=== PATIENT | male | born 1985 | race Caucasian/White ===

== ENCOUNTER 2016-12-25 21:12 | Emergency (ER) | payer MEDICAID, OTHER ==
[2016-12-25] MEDS ORDERED: Sodium Chloride 0.9% 1,000 ML IV ONE ×2 (21:52→22:47)
[2016-12-25 21:53] LABS: BASO # 0.1 K/uL (0.0-0.2); BASO % 0.6 % (0.0-2.0); EOS # 0.2 K/uL (0.0-0.7); EOS % 1.6 % (0.0-4.0); HEMOGLOBIN 14.5 g/dL (12.0-18.0); LYMPH # 3.6 K/uL (1.0-4.3); LYMPH % 37.7 % (20.0-40.0); MEAN CELL VOLUME 90.2 fL (80.0-94.0); MEAN CORPUSCULAR HEMOGLOBIN 30.6 pg (27.0-31.0); MEAN CORPUSCULAR HGB CONC 33.9 g/dL (33.0-37.0); MEAN PLATELET VOLUME 9.4 fL (7.2-11.7); MONO # 0.7 K/uL (0.0-0.8); MONO % 7.3 % (0.0-10.0); NEUT % 52.8 % (50.0-75.0); RBC 4.75 Mil/uL (4.40-5.90); RED CELL DISTRIBUTION WIDTH 13.8 % (11.5-14.5); WHITE BLOOD COUNT 9.5 K/uL (4.8-10.8)
[2016-12-25 22:02] LABS: ALBUMIN 4.2 g/dL (3.5-5.0)
[2016-12-25] MEDS ORDERED: Sodium Chloride 0.9% 1,000 ML ONE (22:02)
[2016-12-25 22:05] LABS: ALB/GLOB RATIO 1.2 (1.0-2.1); AST/SGOT 27 U/L (17-59); BLOOD UREA NITROGEN 10 mg/dL (9-20); GFR AFRICAN-AMERICAN > 60; GFR NON-AFRICAN AMERICAN > 60
[2016-12-25 22:06] LABS: ALT/SGPT 30 U/L (21-72); CALCIUM 8.8 mg/dl (8.6-10.4)
[2016-12-25 23:22] LABS: URINE BACTERIA RARE (<OCC); URINE BILIRUBIN NEGATIVE (NEGATIVE); URINE BLOOD NEGATIVE (NEGATIVE); URINE CLARITY Clear (Clear); URINE COLOR Yellow (YELLOW); URINE GLUCOSE (UA) NORMAL (Normal); URINE LEUKOCYTE ESTERASE NEG Leu/uL (Negative); URINE NITRATE NEGATIVE (NEGATIVE); URINE PROTEIN NEGATIVE (NEGATIVE); URINE UROBILINOGEN NORMAL mg/dL (0.2-1.0)
--- NOTE | 2016-12-26 00:16 | C.PDOC ---
History Of Present Illness 31 year old male presents to the ED with complaints of abdominal pain and intermittent diarrhea for three days. Patient denies fever, nausea, vomiting, dysuria/hematuria, chest pain, SOB. Time Seen by Provider: 12/25/16 21:51 Chief Complaint (Nursing): Abdominal Pain History Per: Patient History/Exam Limitations: no limitations Onset/Duration Of Symptoms: Days (3), Intermittent Episodes (diarrhea ) Current Symptoms Are (Timing): Still Present Radiation Of Pain To:: None Quality Of Discomfort: "Pain" Associated Symptoms: Diarrhea. denies: Fever, Chills, Nausea, Vomiting, Urinary Symptoms Recent travel outside of the [place]: No Past Medical History Reviewed: Historical Data, Nursing Documentation, Vital Signs Vital Signs: Last Vital Signs Temp 97.6 F 12/26/16 00:40 Pulse 87 12/26/16 00:40 Resp 16 12/26/16 00:40 BP 112/84 12/26/16 00:40 Pulse Ox 99 12/26/16 06:44 - Medical History PMH: No Chronic Diseases - [facility] Procedures APPLICATION OF SPLINT (03/24/15) Family History: States: No Known Family Hx - Social History Hx Alcohol Use: No Hx Substance Use: No - Immunization History Hx Tetanus Toxoid Vaccination: No Hx Influenza Vaccination: No Hx Pneumococcal Vaccination: No Review Of Systems Except As Marked, All Systems Reviewed And Found Negative. Constitutional: Negative for: Fever, Chills Cardiovascular: Negative for: Chest Pain, Palpitations Respiratory: Negative for: Cough, Shortness of Breath Gastrointestinal: Positive for: Abdominal Pain, Diarrhea. Negative for: Nausea , Vomiting Genitourinary: Negative for: Dysuria, Hematuria Skin: Negative for: Rash Physical Exam - Physical Exam Appears: Well, Non-toxic, No Acute Distress Skin: Warm, Dry Head: Normacephalic Eye(s): bilateral: Normal Inspection Oral Mucosa: Moist Neck: Supple Cardiovascular: Rhythm Regular Respiratory: Normal Breath Sounds, No Rales, No Rhonchi, No Wheezing Gastrointestinal/Abdominal: Bowel Sounds, Soft, Tenderness (mild diffuse tenderness to palpation), No Distention, No Guarding, No Rebound, Other ((-) McBurney's, (-) Kirby's ) Back: Normal Inspection, No CVA Tenderness Neurological/Psych: Oriented x3 ED Course And Treatment - Laboratory Results Result Diagrams: 12/25/16 21:50 12/25/16 21:50 O2 Sat by Pulse Oximetry: 99 (room air ) Pulse Ox Interpretation: Normal Progress Note: Blood work, UA ordered and reviewed. Patient given IV NS bolus x 2. Reevaluation Time: 00:20 Reassessment Condition: Improved (Patient reassessed, is resting comfortably, in no pain/distres. On exam, abdomen is soft and nontender. Blood work and UA unremarkable. Patient is well appearing, with normal vitals. Rx given for Bentyl, and patient instructed to drink plenty of fluids and follow up with PMD/ clinic in 1-2 days. He understands he should return to ED if symptoms worsen.) Disposition Counseled Patient/Family Regarding: Studies Performed, Diagnosis, Need For Followup, Rx Given - Disposition Referrals: [facility] [Outside] Disposition: HOME/ ROUTINE Disposition Time: 00:20 Condition: STABLE Additional Instructions: FOLLOW UP WITH YOUR DOCTOR/CLINIC IN 1-2 DAYS DRINK PLENTY OF CLEAR FLUIDS RETURN TO ER IF SYMPTOMS WORSEN Prescriptions: Dicyclomine [Bentyl] 20 mg PO Q6 PRN #12 tab PRN Reason: ABDOMINAL CRAMPING Instructions: Acute Diarrhea (ED) Print Language: ANGUILLAN - POA Present On Arrival: None - Clinical Impression Clinical Impression: Abdominal pain, Diarrhea - Scribe Statement The provider has reviewed the documentation as recorded by the Scribblessing Tompkins All medical record entries made by the Mistyibblessing were at my direction and personally dictated by me. I have reviewed the chart and agree that the record accurately reflects my personal performance of the history, physical exam, medical decision making, and the department course for this patient. I have also personally directed, reviewed, and agree with the discharge instructions and disposition.
[2016-12-26 00:42] VITALS: BP 112/84; PULSE 87; RESP 16; TEMP 97.6
[2016-12-26 06:43] VITALS: O2SAT 99
== END 2016-12-26 00:40 | disposition home or self-care (01) ==
LOC: C.ER 21:12
DX: R10.9 Unspecified abdominal pain (principal); R19.7 Diarrhea, unspecified
CPT/HCPCS: 80053; 81001; 83690; 85025; 96360; 99285; J7040

== ENCOUNTER 2017-10-13 20:58 | Emergency (ER) | payer OTHER ==
[2017-10-13 21:15] VITALS: BP 151/84; PULSE 89; RESP 16; TEMP 98.3; O2SAT 98
--- NOTE | 2017-10-13 22:17 | C.PDOC ---
History Of Present Illness Patient is a 32 y/o male who presents to the ED with a complaint of right middle finger pain. Patient reports middle finger got caught in closing door hinges. Patient states injury occurred to right middle finger but pain radiates to whole hand. Admits past injury to same finger 3 years ago s/p surgery to same finger. Denies any numbness or weakness. Time Seen by Provider: 10/13/17 21:29 Chief Complaint (Nursing): Finger,Hand,&Wrist History Per: Patient History/Exam Limitations: no limitations Onset/Duration Of Symptoms: Hrs Current Symptoms Are (Timing): Still Present Quality: "Pain" Recent travel outside of the [place]: No Past Medical History Reviewed: Historical Data, Nursing Documentation, Vital Signs Vital Signs: Last Vital Signs Temp 98.3 F 10/13/17 21:11 Pulse 89 10/13/17 21:11 Resp 16 10/13/17 21:11 BP 151/84 H 10/13/17 21:11 Pulse Ox 98 10/14/17 00:26 - Medical History PMH: No Chronic Diseases Surgical History: No Surg Hx - [facility] Procedures APPLICATION OF SPLINT (03/24/15) Family History: States: No Known Family Hx - Social History Hx Tobacco Use: Yes (light smoker) Hx Alcohol Use: No Hx Substance Use: No - Immunization History Hx Tetanus Toxoid Vaccination: No Hx Influenza Vaccination: No Hx Pneumococcal Vaccination: No Review Of Systems Musculoskeletal: Positive for: Hand Pain (right middle finger pain and radiating right hand pain) Neurological: Negative for: Weakness, Numbness Physical Exam - Physical Exam Appears: Well, Non-toxic, No Acute Distress Skin: Normal Color, Warm, Dry, No Ecchymosis (negative ecchymosis to right third finger) Eye(s): bilateral: Normal Inspection Oral Mucosa: Moist Extremity: Normal ROM (causes pain to right third finger), Tenderness (right third finger- distal), Capillary Refill (normal), No Deformity (negative gross deformity), Swelling (minimal swelling to distal aspect of right third finger), Other (remaining right phalanges fully functional) Neurological/Psych: Oriented x3, Normal Motor, Normal Sensation Gait: Steady ED Course And Treatment O2 Sat by Pulse Oximetry: 98 - Other Rad RightHand X-Ray: Interpreted by Me, Viewed By Me Interpretation: No fx or dislocation, old avulsion injury at distal phalanx Progress Note: Right hand XR ordered. Motrin tab administered. XR shows old avulsion injury to distal tip of third phalange; otherwise, no acute fracture or dislocation. Finger splint applied by CP, RX for NSAIDS. Patient stable for discharge and advised to follow up with clinic. Disposition Counseled Patient/Family Regarding: Diagnosis, Need For Followup, Rx Given - Disposition Referrals: Arron Reed MD [Staff Provider] - [facility] [Outside] [facility] [Outside] Disposition: HOME/ ROUTINE Disposition Time: 22:15 Condition: STABLE Additional Instructions: Motrin for pain as prescribed May apply ICE pack Follow up with hand doctor or in clinic- call for appointment Keep Splint for support Return to ER if worse Prescriptions: Ibuprofen [Motrin] 600 mg PO Q6H #24 tab Instructions: Contusion (DC) Forms: [employer] (Nauruan) - Clinical Impression Clinical Impression: Finger contusion - Scribe Statement The provider has reviewed the documentation as recorded by the Scribe Trish Martinez All medical record entries made by the Scribe were at my direction and personally dictated by me. I have reviewed the chart and agree that the record accurately reflects my personal performance of the history, physical exam, medical decision making, and the department course for this patient. I have also personally directed, reviewed, and agree with the discharge instructions and disposition.
--- NOTE | 2017-10-14 14:03 | RAD ---
PROCEDURE: Right middle finger radiographs 10/13/2017 PA view of the right hand and 2 additional cone-down views of the 3rd finger performed HISTORY: Status post door closed on 3rd finger; history of old injury 2nd finger. COMPARISON: No prior study available for comparison FINDINGS: The current study reveals what appears represent old posttraumatic changes distal tuft distal phalanx 3rd finger. There appears be localized penciling of the distal tuft which most likely due to old fracture and secondary resorption changes. Deformity of the fingernail 3rd finger. There is mild distal soft tissue swelling which could be acute. In addition, there also appears to fracture of the distal tuft of the 4th finger age-indeterminate as noted the significant surrounding soft tissue swelling is identified. Remaining osseous structures intact No radiopaque foreign bodies IMPRESSION: Presumed old posttraumatic changes distal tuft distal phalanx 3rd finger. No evidence of acute fracture. . There does appear to be distal mild surrounding soft tissue swelling. Apparent fractured distal tuft distal phalanx 4th finger which is age indeterminate though likely chronic due to the lack of significant surrounding soft tissue swelling.
== END 2017-10-13 22:24 | disposition home or self-care (01) ==
LOC: C.ER 20:58
DX: S60.031A Contusion of right middle finger without damage to nail, initial encounter (principal); W23.0XXA Caught, crushed, jammed, or pinched between moving objects, initial encounter